=== PATIENT | male | born 1980 ===

== ENCOUNTER 2018-03-12 19:26 | Emergency (ER) | payer SELFPAY ==
[2018-03-12 19:35] VITALS: O2SAT 99
[2018-03-12] MEDS ORDERED: DiphenhydrAMINE 50 mg/ml Inj IM STA (20:02)
[2018-03-12] MEDS ORDERED: DiphenhydrAMINE 50 mg/ml Inj ONE (20:10)
--- NOTE | 2018-03-12 20:30 | C.PDOC ---
History Of Present Illness 38 year old male presents to the ED c/o puritic rash to his bilateral arms for the past week. Patient reports he was exposed to poison vance recently. Patient was seen by his PMD and prescribed topical ointment. Patient is also c/o rash to his chest, legs. Patient denies fever, chills, nausea, vomit, SOB. Time Seen by Provider: 03/12/18 19:38 Chief Complaint (Nursing): Abnormal Skin Integrity History Per: Patient History/Exam Limitations: no limitations Onset/Duration Of Symptoms: Days Current Symptoms Are (Timing): Still Present Location Of Injury: Right: Arm, Chest, Leg, Left: Arm, Chest, Leg Quality Of Symptoms: Itching Recent travel outside of the [place]: No Additional History Per: Patient Past Medical History Reviewed: Historical Data, Nursing Documentation, Vital Signs Vital Signs: Last Vital Signs Temp 98.6 F 03/12/18 20:42 Pulse 60 03/12/18 20:42 Resp 18 03/12/18 20:42 BP 129/88 03/12/18 20:42 Pulse Ox 99 03/12/18 23:47 - Medical History PMH: No Chronic Diseases Surgical History: No Surg Hx Family History: States: Unknown Family Hx - Social History Hx Alcohol Use: Yes Hx Substance Use: No - Immunization History Hx Tetanus Toxoid Vaccination: Yes Hx Influenza Vaccination: No Hx Pneumococcal Vaccination: No Review Of Systems Constitutional: Negative for: Fever, Chills ENT: Negative for: Ear Discharge Cardiovascular: Negative for: Chest Pain, Palpitations Gastrointestinal: Negative for: Nausea, Vomiting Skin: Positive for: Rash Neurological: Negative for: Weakness, Numbness Physical Exam - Physical Exam Appears: Non-toxic, No Acute Distress Skin: Warm, Dry, Rash (diffuse macualr rash scattered to torso, arms and lower legs) Head: Atraumatic, Normacephalic Eye(s): bilateral: Normal Inspection Ear(s): Bilateral: Normal Oral Mucosa: Other (no lesions) Tongue: No Lesions Lips: No Lesions Throat: Normal, No Erythema, No Exudate Chest: Symmetrical Cardiovascular: Rhythm Regular Respiratory: Normal Breath Sounds, No Rales, No Rhonchi, No Wheezing Neurological/Psych: Oriented x3, Normal Speech Gait: Steady ED Course And Treatment O2 Sat by Pulse Oximetry: 99 (ON RA) Pulse Ox Interpretation: Normal Progress Note: Plan: - Kirkadryl 50 mg IM. - Prednisone 40 mg PO. Patient is resting comfortably, tolerating PO, has no shortness of breath, has no intra- oral swelling, no stridor, no rash or pruritus. Patient was advised to avoid potential allergens, and to follow up with physician in 1-2 days. Reassessment Condition: Improved Disposition Counseled Patient/Family Regarding: Diagnosis, Need For Followup - Disposition Referrals: [facility] [Outside] Disposition: HOME/ ROUTINE Disposition Time: 20:27 Condition: STABLE Additional Instructions: Take medications as directed Follow up with PMD or in clinic Return to ER if worse Prescriptions: Cetirizine HCl [Zyrtec] 10 mg PO DAILY #10 capsule DiphenhydrAMINE [Benadryl] 50 mg PO Q6H #20 cap predniSONE [Prednisone] 40 mg PO DAILY #6 tab Instructions: Contact Dermatitis (DC) Forms: [employer] (Belgian) Print Language: INDONESIAN - Clinical Impression Clinical Impression: Contact dermatitis - PA / [employer] / Resident Statement MD/DO has reviewed & agrees with the documentation as recorded. - Scribe Statement The provider has reviewed the documentation as recorded by the Scribe Alexey Elliott All medical record entries made by the Nasim were at my direction and personally dictated by me. I have reviewed the chart and agree that the record accurately reflects my personal performance of the history, physical exam, medical decision making, and the department course for this patient. I have also personally directed, reviewed, and agree with the discharge instructions and disposition.
[2018-03-12 21:12] VITALS: BP 129/88; PULSE 60; RESP 18; TEMP 98.6
== END 2018-03-12 20:45 | disposition home or self-care (01) ==
LOC: C.ER 19:26
DX: L25.9 Unspecified contact dermatitis, unspecified cause (principal)
CPT/HCPCS: 96372; 99283; J1200